=== PATIENT | female | born 1970 ===

== ENCOUNTER 2021-10-24 13:09 | Emergency (ER) | payer BC ==
[~2021-10-24] VITALS: Ht 170.2 cm; Wt 70.5 kg
[2021-10-24] MEDS ORDERED: ceFAZolin/D5W- 1GM premix 50 ML IV STA (14:01)
[2021-10-24] MEDS ORDERED: ondansetron/PF 4mg/2ml inj IV ONE (14:05)
[2021-10-24] MEDS ORDERED: morphine 4 MG/ML inj SYRINge IV ONE (14:05)
[2021-10-24] MEDS ORDERED: CEPH250T PO (14:52)
[2021-10-24] MEDS ORDERED: HYDR-3965 PO (14:52)
[2021-10-24] MEDS ORDERED: HYDROcodone/acetaminophen 5mg/325mg tablet PO ONE (15:00)
[2021-10-24 15:40] VITALS: BP 111/66
== END 2021-10-24 17:12 | disposition home or self-care (01) ==
LOC: ER 13:09
DX: S81.811A Laceration without foreign body, right lower leg, initial encounter (principal); Z79.2 Long term (current) use of antibiotics; X58.XXXA Exposure to other specified factors, initial encounter; Y93.89 Activity, other specified; Y92.89 Other specified places as the place of occurrence of the external cause; Y99.8 Other external cause status
CPT/HCPCS: 12002; 73590; 96365; 96375; 99284; J0690; J2270; J2405